=== PATIENT | female | born 1990 | race Caucasian/White ===

== ENCOUNTER 2023-02-02 08:15 | Outpatient (CLI) | payer BC ==
[2023-02-02 08:42] LABS: BASOPHILS % (AUTO) 0.3 %; EOSINOPHILS # (AUTO) 0.1 10^3/uL (0.0-0.7); EOSINOPHILS % (AUTO) 1.2 %; HGB - HEMOGLOBIN 12.2 g/dL (12.0-16.0); LYMPHOCYTES # (AUTO) 1.6 10^3/uL (1.5-3.5); MEAN CORPUSCULAR HEMOGLOBIN 32.4 pg (27.0-31.0); MEAN CORPUSCULAR HGB CONC 34.9 g/dL (32.0-36.0); MEAN CORPUSCULAR VOLUME 93.1 fL (81.0-99.0); MEAN PLATELET VOLUME 11.2 fL (7.9-10.8); MONOCYTES # (AUTO) 0.6 10^3/uL (0.0-1.0); MONOCYTES % (AUTO) 9.5 %; NEUTROPHILS # (AUTO) 4.3 10^3/uL (1.5-6.6); NEUTROPHILS % (AUTO) 64.4 %; PLT - PLATELET COUNT 186 10^3/uL (130-450); RED BLOOD COUNT 3.76 10^6/uL (4.20-5.40); RED CELL DISTRIBUTION WIDTH 11.9 % (12.0-15.0); WHITE BLOOD COUNT 6.6 x10^3/uL (4.8-10.8)
[2023-02-02 09:09] LABS: THYROID STIMULATING HORMONE 1.57 uIU/mL (0.34-5.60)
[2023-02-03 03:10] LABS: HBsAG SCREEN Negative (Negative)
[2023-02-03 05:13] LABS: RPR Non Reactive (Non Reactive)
[2023-02-03 06:09] LABS: HCV AB Non Reactive (Non Reactive); HIV SCREEN 4TH GENERATION Non Reactive (Non Reactive)
[2023-02-03 09:08] LABS: VARICELLA-ZOSTER AB IGG 965 index (Immune >165)
== END 2023-02-02 08:16 | disposition home or self-care (01) ==
LOC: LAB 08:15
PROVIDERS: ATTEND Nurse Practitioner Obstetrics & Gynecology
DX: Z36.89 Encounter for other specified antenatal screening (principal)
CPT/HCPCS: 36415; 84439; 84443; 85025; 86592; 86762; 86787; 86803; 86850; 86900; 86901; 87340; 87389

== ENCOUNTER 2023-04-01 07:21 | Outpatient (CLI) | payer BC ==
--- NOTE | 2023-04-01 11:54 | Ultrasound Report ---
PROCEDURE: OB Anatomy Scan INDICATIONS: SUPERVISION OF OUTSIDE/PRIOR DATING DATA: Last menstrual period (LMP): Unknown. LMP-based estimated date of delivery (EMA): Unknown. First dating scan (date and location): 04/01/2023. Estimated date of delivery (EMA) from first dating scan: 08/19/2023. TECHNIQUE: Real-time scanning was performed of the fetus, with image documentation and biometric measurements. Endovaginal scanning: Not performed. COMPARISON: None. FINDINGS: General: A single living intrauterine gestation is present. Presentation: Variable, vertex Placenta: Placental position is posterior, without previa. Amniotic fluid index: 13.7 cm, within normal limits for gestational age. heart rate: 176 beats per minute. Maternal cervical canal: 6.6 cm long; normal length is 2.5 cm or more. biometrics: Biparietal diameter: 4.9 cm, 20 weeks 6 days, 81% Head circumference: 17.7 cm, 20 weeks 1 day, 50% Abdominal circumference: 14.7 cm, 20 weeks 0 day, 43% Femur length: 3.0 cm, 19 weeks 1 day, 16.5% Estimated gestational age from initial scan: 20 weeks 0 days Composite gestational age from present scan: 19 weeks 5 days Estimated weight and percentile: 308 g, 29% Measurement variability in biometric dating: +/- 10 days from 12-20 weeks gestation, +/- 2 weeks from 20-30 weeks gestation, +/- 3 weeks at 30 weeks gestation or later. Anatomic survey: Neuro: Ventricles are normal at less than 10 mm. Cisterna magna is normal at 3-11 mm. Cerebellum i s normal in size and morphology. Nuchal skin fold: Normal at less than 6 mm between 14 and 20 weeks gestational age. Face: Nose and lips, facial profile are normal. Spine: No evidence for spina bifida. Heart: 4-chambered heart is present, with normal ventricular outflow tracts. Diaphragm: Diaphragm is intact. Stomach: Left-sided stomach is present. Kidneys: No hydronephrosis. Normal is less than 5 mm in 2nd trimester, less than 7 mm in 3rd trimester. Cord: 2 vessel cord has orthotopic insertion. Bladder: Normal in size. Extremities: All 4 extremities are visualized. IMPRESSION: 1.Single live intrauterine consistent with 19 weeks and 5 days. 2.There is a two-vessel cord. Otherwise, normal anatomic survey. Reviewed by: Rory Machuca MD on 04/01/2023 11:53 AM PST Approved by: Rory Machuca MD on 04/01/2023 11:53 AM PST Station ID: [id number]
== END 2023-04-01 07:22 | disposition home or self-care (01) ==
LOC: DI 07:21
PROVIDERS: ATTEND Nurse Practitioner Obstetrics & Gynecology
DX: Z34.02 Encounter for supervision of normal first pregnancy, second trimester (principal); Z36.89 Encounter for other specified antenatal screening

== ENCOUNTER 2023-05-23 11:00 | Outpatient (CLI) | payer BC, OTHER ==
--- NOTE | 2023-05-23 13:56 | Ultrasound Report ---
PROCEDURE: OB Follow up INDICATIONS: CONGENITAL ABSENCE AND HYPOPLASIA OF UMBILICAL ART OUTSIDE/PRIOR DATING DATA: Last menstrual period (LMP): Not provided First dating scan 04/01/2023. EMA is 08/19/2023. TECHNIQUE: Real-time scanning was performed of the fetus, with image documentation and biometric measurements. COMPARISON: 04/01/2023 FINDINGS: General: A single living intrauterine gestation is present. Presentation: Vertex Placenta: Placental position is posterior, without previa. Amniotic fluid index: 14.1 cm, within normal limits for gestational age. heart rate: 119 beats per minute. Maternal cervical canal: 5 cm long; normal length is 2.5 cm or more. biometrics: Biparietal diameter: 7.4 cm, 29 weeks and 6 days, 96 percentile Head circumference: 26.6 cm, 29 weeks, 72nd percentile Abdominal circumference: 23.6 cm, 27 weeks and 6 days, 58th percentile Femur length: 5.1 cm, 27 weeks and 3 days, 33rd percentile Estimated gestational age from initial scan: 27 weeks and 3 days Composite gestational age from present scan: 28 weeks and 4 days Estimated weight and percentile: 1152 g, 59th percentile Measurement variability in biometric dating: +/- 10 days from 12-20 weeks gestation, +/- 2 weeks from 20-30 weeks gestation, +/- 3 weeks at 30 weeks gestation or more. Two-vessel cord again seen. IMPRESSION: Normal interval growth. EFW is at the 59th percentile. Normal MANJEET. Vertex presentation. Two-vessel cord again seen. Reviewed by: Rey Alvarado MD on 05/23/2023 1:55 PM PDT Approved by: Rey Alvarado MD on 05/23/2023 1:55 PM PDT Station ID: [id number]
== END 2023-05-23 11:01 | disposition home or self-care (01) ==
LOC: DI 11:00
PROVIDERS: ATTEND Nurse Practitioner Obstetrics & Gynecology
DX: Q27.0 Congenital absence and hypoplasia of umbilical artery (principal)

== ENCOUNTER 2023-05-23 11:46 | Outpatient (CLI) | payer BC, OTHER ==
[2023-05-23 13:06] LABS: HCT - HEMATOCRIT 30.5 % (37.0-47.0); HGB - HEMOGLOBIN 9.9 g/dL (12.0-16.0); MEAN CORPUSCULAR HEMOGLOBIN 29.6 pg (27.0-31.0); MEAN CORPUSCULAR HGB CONC 32.5 g/dL (32.0-36.0); MEAN CORPUSCULAR VOLUME 91.3 fL (81.0-99.0); MEAN PLATELET VOLUME 10.8 fL (7.9-10.8); RED BLOOD COUNT 3.34 10^6/uL (4.20-5.40); RED CELL DISTRIBUTION WIDTH 15.5 % (12.0-15.0); WHITE BLOOD COUNT 13.2 x10^3/uL (4.8-10.8)
== END 2023-05-23 11:47 | disposition home or self-care (01) ==
LOC: LAB 11:46
PROVIDERS: ATTEND Nurse Practitioner Obstetrics & Gynecology
DX: Z36.9 Encounter for antenatal screening, unspecified (principal)
CPT/HCPCS: 36415; 82950; 85027

== ENCOUNTER 2023-07-19 09:58 | Outpatient (CLI) | payer BC, OTHER ==
--- NOTE | 2023-07-19 14:45 | Ultrasound Report ---
PROCEDURE: OB Follow up INDICATIONS: 2 VESSEL UMBILICAL CORD OUTSIDE/PRIOR DATING DATA: Last menstrual period (LMP): Unknown. First dating scan (date and location): 04/01/2023. Estimated date of delivery (EMA) from first dating scan: 08/19/2023. TECHNIQUE: Real-time scanning was performed of the fetus, with image documentation and biometric measurements. Endovaginal scanning: Not performed. COMPARISON: OB ultrasound, 05/23/2023 and 04/01/2023. FINDINGS: General: A single living intrauterine gestation is present. Presentation: Vertex Placenta: Placental position is posterior, without previa. Amniotic fluid index: 11.4 cm, largest pocket 4.1 cm. heart rate: 130 beats per minute. Maternal cervical canal: Closed measuring 3.8 cm long; normal length is 2.5 cm or more. biometrics: Biparietal diameter: 9.4 cm; 38 weeks 2 days; 98.4%. Head circumference: 33.4 cm; 38 weeks 1 day; 81.0%. Abdominal circumference: 32.3 cm; 36 weeks 1 day; 75.8%. Femur length: 6.9 cm; 35 weeks 3 days; 38.5% Estimated gestational age from initial scan: 35 weeks 4 days. Composite gestational age from present scan: 37 weeks 0 day Estimated weight and percentile: 2935 g; 73.3% for gestational age. Measurement variability in biometric dating: +/- 10 days from 12-20 weeks gestation, +/- 2 weeks from 20-30 weeks gestation, +/- 3 weeks at 30 weeks gestation or more. Other: Not applicable. IMPRESSION: 1. A single living IUP with appropriate interval growth. 2. The estimated weight is at the 73th percentile for gestational age. BPD is at the 98th perce ntile. 3. MANJEET 11.4 cm. 4. A 2-vessel cord is again noted. Reviewed by: Mary Diego MD on 07/19/2023 2:43 PM PDT Approved by: Mary Diego MD on 07/19/2023 2:43 PM PDT Station ID: [id number]
== END 2023-07-19 09:59 | disposition home or self-care (01) ==
LOC: DI 09:58
PROVIDERS: ATTEND Nurse Practitioner Obstetrics & Gynecology
DX: O35.8XX0 Maternal care for other (suspected) fetal abnormality and damage, not applicable or unspecified (principal); Z3A.37 37 weeks gestation of pregnancy

== ENCOUNTER 2023-08-12 07:56 | Inpatient (IN) | payer BC, OTHER ==
[2023-08-12] MEDS ORDERED: OXYTOCIN 10 UNIT/ML VIAL IM PRN (08:19)
[2023-08-12] MEDS ORDERED: METHYLERGONOVINE 0.2 MG/ML VIAL IM PRN (08:19)
[2023-08-12] MEDS ORDERED: SODIUM CHLORIDE FLUSH 0.9% 10 ML SYRINGE IVP PRN (08:19)
[2023-08-12] MEDS ORDERED: CARBOPROST TROMETHAMINE 250 MCG/ML VIAL IM PRN (08:19)
[2023-08-12] MEDS ORDERED: TRANEXAMIC ACID IN NACL 1,000 MG/100 ML BAG IV PRN (08:19)
[2023-08-12] MEDS ORDERED: lidocaine 1% 20 ML MDV ID PRN (08:19)
[2023-08-12] MEDS ORDERED: miSOPROStoL 200 MCG TABLET BC PRN (08:19)
[2023-08-12 08:39] LABS: BASOPHILS % (AUTO) 0.2 %; EOSINOPHILS # (AUTO) 0.1 10^3/uL (0.0-0.7); EOSINOPHILS % (AUTO) 0.5 %; HCT - HEMATOCRIT 35.6 % (37.0-47.0); LYMPHOCYTES # (AUTO) 1.4 10^3/uL (1.5-3.5); LYMPHOCYTES % (AUTO) 13.5 %; MEAN CORPUSCULAR HEMOGLOBIN 31.3 pg (27.0-31.0); MEAN CORPUSCULAR HGB CONC 33.7 g/dL (32.0-36.0); MEAN PLATELET VOLUME 11.6 fL (7.9-10.8); MONOCYTES % (AUTO) 10.2 %; NEUTROPHILS # (AUTO) 7.2 10^3/uL (1.5-6.6); NEUTROPHILS % (AUTO) 71.9 %; PLT - PLATELET COUNT 159 10^3/uL (130-450); RED BLOOD COUNT 3.83 10^6/uL (4.20-5.40); RED CELL DISTRIBUTION WIDTH 14.1 % (12.0-15.0)
[2023-08-12] MEDS: miSOPROStoL 100 MCG TABLET BC SCH (08:50)
--- NOTE | 2023-08-12 11:41 | HISTORY & PHYSICAL EXAMINATION ---
Admit History - Visit Reason Visit Reason: Other - : 1 Parity: 0 Premature: 0 Ectopic: 0 : 0 Care: positive: [facility] Risk/History: positive: None Complications This : positive: Other Smoking Status: Never smoker - Mother's Labs Mother's Blood Type: positive: A Mother's RH: positive: Positive GBS: positive: Group B Step Negative Rubella Status: positive: Immune - HPI Diagnosis/Indication for NST: Other Current [facility] 08/19/23 Gestation 39 Weeks and 0 Days 1 Vital Signs Temperature 36.5 C 08/12/23 08:02 Heart Rate 120 H 08/12/23 08:02 Respiratory Rate 16 08/12/23 08:02 Blood Pressure 104/69 08/12/23 08:02 Temperature 36.5 C 08/12/23 08:02 Heart Rate 120 H 08/12/23 08:02 Respiratory Rate 16 08/12/23 08:02 Blood Pressure 104/69 08/12/23 08:02 O2 Saturation If not protocol: Oxygen Flow, liters/minute - NST Procedure NST reactive. FHR baseline 140s, moderate variability, + accels, no decels No contractions appreciated via tocometry Meds/Allgy - Allergies Allergies/Adverse Reactions: Allergies Allergy/AdvReac Type Severity Reaction Status Date / Time No Known Drug Allergies Allergy Verified 08/12/23 09:48 Review of Systems - Constitutional Constitutional: denies: Fatigue, Fever, Chills, Malaise - Eyes Eyes: denies: Blurred vision, Spots in vision, Dipolpia - Cardiovascular Cariovascular: denies: Irregular heart rate, Palpitations, Chest pain, Edema - Respiratory Respiratory: denies: Cough, Wheezing, SOB at rest - Gastrointestinal Gastrointestinal: denies: Abdominal pain, Constipation, Diarrhea, Nausea, Vomiting - Genitourinary Genitourinary: denies: Dysuria - Integumentary Integumentary: denies: Rash, Pruritis - Neurological Neurological: denies: Headache - Psychiatric Psychiatric: denies: Depression, Anxiety - Hematologic/Lymphatic Hematologic/Lymphatic: denies: Anemia - All Other Systems All Other Systems: reports: Reviewed and negative Physical - Abdominal Exam Vital Signs: Temp Pulse Resp BP Pulse Ox O2 Flow Rate 36.5 C 120 H 16 104/69 08/12/23 08:02 08/12/23 08:02 08/12/23 08:02 08/12/23 08:02 Contraction Intensity: positive: Mild Uterine Resting Tone: positive: Soft - Monitoring Heart Rate Baseline: 140 Strip Review: positive: Category I - Presentation Presentation: positive: Vertex - Vaginal Exam Membranes: positive: Membranes intact Dilation (in cm): 1 Effacement (%): 50 Station: positive: -3 Cervical Position: positive: Midposition - Speculum Exam Speculum Exam Performed: positive: No Plan for Labor - Plan For Labor I expect patient to be DC'd or transferred within 96 hours.: Yes Plan for Labor: Sheeba is a 33yo @ 39.0wks gestation by LMP c/w 8.5wk U/S who presents to [facility] for medical induction of labor indicated for single umbilical artery. Upon arrival her NST is reactive with FHR baseline 140s. Cervix is 1/50/-3 and vertex with intact membranes. She denies contractions, vaginal bleeding or leakage of fluid and reports +FM. She is supported by her Gurpreet today. She has been a patient of [facility] for the duration of her which has been complicated by single umbilical artery. She has had weekly testing since 36wks gestation per [facility] recommendations and her growth & MANJEET at both 28wks and 35wks were within normal limits with estimated weight to be 59%tile and 73%tile respectively. In addition to 2VC she is advanced maternal age and has had mild anemia throughout her for which she has taken and responded well to oral iron supplementation. She will be admitted to [facility] for medication induction of labor. Dating criteria: LMP: 11/12/2022 EMA by LMP: 08/19/2023 Initial U/S @ 8.5wks c/w LMP dating. 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 Denies history of gonorrhea, chlamydia, genital herpes, oral herpes or any other STI. Sexual partner does NOT have HSV (oral or genital). Medical Hx: anxiety Surgical Hx: Tonsillectomy & adenoidectomy (1991) Social Hx: Monogamous with male partner. 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 Stopped drinking alcohol due to . Denies current use of tobacco, marijuana or other recreational drugs. Reports that she is safe in current relationship. Family Hx: Mother-hypothyroid. Denies family history of congenital anomalies, Cystic Fibrosis or chromosomal abnormalities. Allergies: NKDA Medications: FeSO4 PO bid; PNV course: A positive, antibody negative Rubella immune, varicella immune Hep B neg, Hep C neg HIV non-reactive, RPR - nonreactive GC/CT neg Genetic screening - negative FAS WNL with the exception of 2VC. Posterior placenta, no previa. Size c/w dating (EFW 29%tile). MANJEET WNL. Glucola 122 28wk Growth and MANJEET WNL: Size c/w dating (EFW 59%tile). 2VC. MANJEET 14.4cm 35wks Growth and WFI WNL: EFW 73.3%tile (2935g) 11.4cm GBS negative Physical exam: Normocephalic, atraumatic Heart RRR w/o M/G/R Lung CTAB Abdomen gravid, soft, nontender EFW 3800g FHR baseline 140s, moderate variability, + accels, no decels No contractions palpable via tocometry SVE 1/50/-3, vertex. Intact membranes Bilateral LE's trace edema. Assessment: 33yo @ 39.0wks gestation Single umbilical artery Advanced maternal age FHR Category I GBS negative Plan: Admit to [facility] for medical induction of labor. Initiate 50mcg BC misoprostol for pre-induction cervical ripening. Place cervical ripening balloon with next SVE. Continuos monitoring. Epidural per maternal request. Anticipate .
[2023-08-12] MEDS ORDERED: LIDOCAINE 2%-EPI 1:100000 20 ML MDV ONE ×2 (11:47→21:00)
[2023-08-12] MEDS ORDERED: ROPIVACAINE 0.2% 200 MG/100 ML BAG EP ONE (11:47)
[2023-08-12] MEDS: LACTATED RINGERS 1,000 ML IV SCH (11:59)
[2023-08-12] MEDS ORDERED: diphenhydrAMINE INJ 50 MG/ML VIAL IVP PRN (13:10)
[2023-08-12] MEDS ORDERED: METOCLOPRAMIDE 10 MG/2 ML VIAL IVP PRN (13:10)
[2023-08-12] MEDS ORDERED: ePHEDrine 50 MG/ML VIAL IVP PRN (13:10)
[2023-08-12] MEDS ORDERED: NALBUPHINE 10 MG/ML AMP IVP PRN (13:10)
[2023-08-12] MEDS ORDERED: NALOXONE 0.4 MG/ML VIAL IVP PRN (13:10)
--- NOTE | 2023-08-12 13:13 | ANESTHESIA ---
Pre-Anesthesia VS, & Labs - Diagnosis 39w desires labor epidural - Procedure placement of labor epidural Vital Signs: Temp Pulse Resp BP Pulse Ox O2 Flow Rate 36.5 C 120 H 16 104/69 08/12/23 08:02 08/12/23 08:02 08/12/23 08:02 08/12/23 08:02 Height: 5 ft 3 in Weight (kg): 97.069 kg Body Mass Index: 37.9 BMI Classification: Obese - NPO Last Fluid Intake: sips currently - Is Patient ?: Yes - Lab Results Current Lab Results: Laboratory Tests 08/12/23 08:15: WBC 10.0, RBC 3.83 L, Hgb 12.0, Hct 35.6 L, MCV 93.0, MCH 31.3 H , MCHC 33.7, RDW 14.1, Plt Count 159, MPV 11.6 H, Neut # (Auto) 7.2 H, Lymph # (Auto) 1.4 L, [place]ides # (Auto) 1.0, Eos # (Auto) 0.1, Baso # (Auto) 0.0, Absolute Nucleated RBC 0.00, Nucleated RBC % 0.0 08/12/23 08:15: Blood Type A POSITIVE, Antibody Screen NEGATIVE Lab results reviewed: Yes Fish Bones: 08/12/23 08:15 Home Medications and Allergies Active Medications Carboprost Tromethamine (Carboprost Tromethamine 250 Mcg/Ml Vial) 250 mcg IM Q15M PRN PRN Reason: Step 4: Hemorrhage protocol Oxytocin/Sodium Chloride (Pitocin/Sodium Chloride) 500 mls @ 999 mls/hr IV PRN PRN; Protocol PRN Reason: POST- HEMORR PREVENTION Stop: 08/17/23 08:20 Tranexamic Acid (Tranexamic 1,000 Mg/100ml-Nacl) 1,000 mg in 100 mls @ 600 mls/hr IV .ONCE PRN PRN Reason: EBL >1200mL and within 3hr Stop: 08/17/23 08:20 Lactated Ringer's (Lr) 1,000 mls @ 100 mls/hr IV .Q10H MILADIS Last Infusion: 08/12/23 12:02 Dose: 999 mls/hr Lidocaine HCl (Lidocaine 1% 20 Ml Mdv) 20 ml ID .ONCE PRN PRN Reason: PERINEAL REPAIR Stop: 08/17/23 08:20 Methylergonovine Maleate (Methylergonovine 0.2 Mg/Ml Vial) 0.2 mg IM .ONCE PRN PRN Reason: Step 2: Hemorrhage protocol Stop: 08/17/23 08:20 Misoprostol (Misoprostol 200 Mcg Tablet) 800 mcg BC .ONCE PRN PRN Reason: Step 3: Hemorrhage protocol Stop: 08/17/23 08:20 Misoprostol (Misoprostol 100 Mcg Tablet) 50 mcg BC Q4HR MILADIS Last Admin: 08/12/23 08:50 Dose: 50 mcg Oxytocin (Oxytocin 10 Unit/Ml Vial) 10 unit IM .ONCE PRN PRN Reason: Step one: If no IV access Stop: 08/17/23 08:20 Sodium Chloride (Sodium Chloride Flush 0.9% 10 Ml Syringe) 10 ml IVP PRN PRN PRN Reason: NEEDED PER PROVIDER ORDERS Allergies/Adverse Reactions: Allergies Allergy/AdvReac Type Severity Reaction Status Date / Time No Known Drug Allergies Allergy Verified 08/12/23 09:48 Anes History & Medical History - Anesthetic History Anesthesia Complications: reports: No previous complications Family history of Anesthesia Complications: Denies - Medical History Cardiovascular: reports: None Pulmonary: reports: None Gastrointestinal: reports: None Urinary: reports: None Neuro: reports: None Endocrine/Autoimmune: reports: None Blood Disorders: reports: None Smoking Status: Never smoker Psychosocial: reports: No issues indicated - Obstetrical History : 1 Parity: 0 Events: reports: None Complications: reports: Other Exam General: Alert, Oriented x3 Dental: WNL Mouth Openin Fingerbreadth Neck Mobility: Normal Mallampati classification: II Thyromental Distance: 4-6 cm Plan Anesthesia Type: Epidural Consent for Procedure(s) Verified and Reviewed: Yes Code Status: Attempt Resuscitation ASA classification: 1-Healthy patient Is this case an emergency?: No
--- NOTE | 2023-08-12 17:05 | PROVIDER PROGRESS NOTE ---
Labor Progress Note - Uterine Monitoring Uterine Monitoring Mode: positive: External toco Contraction Frequency (min/apart): 2-4 Contraction Intensity: positive: Moderate Uterine Resting Tone: positive: Soft - Monitoring Monitor Mode: positive: External ultrasound Heart Rate Baseline: 140 Heart Rate Variability: positive: Moderate (6-25 bmp) Accelerations: positive: Present, 15x15 Decelerations: positive: None Strip Review: positive: Category I - Labor Progress Note Labor Progress Note/Additional Text: Sheeba is a 33yo @ 39.0wks gestation by LMP c/w 8.5wk U/S who presents to [facility] for medical induction of labor indicated for single umbilical artery. Upon arrival her NST is reactive with FHR baseline 140s. Cervix is 1/50/-3 and vertex with intact membranes. She received one dose of misoprostol and a cervical ripening ballon was placed a few hours later and remains in place at the time of this note. She became increasingly more uncomfortable and received epidural anesthesia. Is now very comfortable. Contractions 2-4 minutes. Continued category I tracing. ................................JERALD Castillo, Student Nurse Fifth Grade Teacher.
[2023-08-12] MEDS: OXYTOCIN/SODIUM CHLORIDE 500 ML IV SCH (17:58)
--- NOTE | 2023-08-12 18:07 | PROVIDER PROGRESS NOTE ---
Labor Progress Note - Uterine Monitoring Uterine Monitoring Mode: positive: External toco Contraction Intensity: positive: Moderate Uterine Resting Tone: positive: Soft - Monitoring Monitor Mode: positive: External ultrasound Heart Rate Variability: positive: Moderate (6-25 bmp) Accelerations: positive: Present, 15x15 Decelerations: positive: None - Labor Progress Note Labor Progress Note/Additional Text: At bedside with KATRIN Coleman. Vaginal exam: Cervical ripening balloon intact despite tension. Continued category I tracing, contractions 2.5-4 minutes, moderate intensity. Discussed plan of care with Sheeba who desires labor augmentation with oxytocin. Discussed expectations for titration of oxytocin and labor curve. Utilized shared decision making and order placed with KATRIN Coleman for oxytocin titration per induction protocol. JERALD Castillo, Student Nurse Radiology Special Procedure Tech
--- NOTE | 2023-08-12 18:58 | PROVIDER PROGRESS NOTE ---
Labor Progress Note - Uterine Monitoring Uterine Monitoring Mode: positive: External toco : 2-3.5 Contraction Intensity: positive: Moderate Uterine Resting Tone: positive: Soft - Monitoring Monitor Mode: positive: External ultrasound Heart Rate Baseline: 140 Heart Rate Variability: positive: Moderate (6-25 bmp) Accelerations: positive: Present, 15x15 Decelerations: positive: None Strip Review: positive: Category I - Vaginal Exam Dilation (in cm): 5 Effacement (%): 50 Station: -3 - Labor Progress Note Labor Progress Note/Additional Text: Cervical ripening balloon came out with gentle manipulation by RN. Cervical exam by RN /-3, intact. Pitocin @ 4mu/min. JERALD Castillo Student Nurse Lead Solutions Architect.
[2023-08-12] MEDS: ROPIVACAINE 0.2% 200 MG/100 ML BAG EP PRN (19:11)
--- NOTE | 2023-08-12 20:56 | PROVIDER PROGRESS NOTE ---
Labor Progress Note - Uterine Monitoring Uterine Monitoring Mode: positive: IUPC Contraction Frequency (min/apart): 2-3 Contraction Intensity: positive: Mild to moderate Uterine Resting Tone: positive: Soft - Monitoring Monitor Mode: positive: External ultrasound Heart Rate Variability: positive: Moderate (6-25 bmp) Accelerations: positive: Present, 15x15 Decelerations: positive: Variable Strip Review: positive: Category II - Vaginal Exam Dilation (in cm): 6 Effacement (%): 50 Station: -2 Cervical Position: Midposition - Labor Progress Note Labor Progress Note/Additional Text: Situation: Patient started to feel discomfort with epidural, tolerating position changes, slightly anxious, overall coping well, understands situation after our discussions, feels well informed. Objective: 1. SVE /-2 2. Recurrent variable decelerations since AROM @ 1920. RN interventions included multiple position changes and IV fluid bolus, oxytocin stopped little 3. improvement. IUPC placed after extended discussion and amnioinfusion initiated. Assessment: 33 year old @ 39+0 gestation 1. single umbilical artery 2. advanced maternal age 3. medical induction of labor. 4. Category 2 tracing. Plan: 1. continuos monitoring 2. reevaluation of status after amniocentesis 3. leave pitocin off until no variable decelerations x30 minutes. 4. On-call physician notified of patient status. .Marcella Sadler, Student Nurse Shipwright Apprentice
[2023-08-12] MEDS ORDERED: SODIUM CHLORIDE 0.9% 10 ML VIAL IVP ONE (21:01)
[2023-08-12] MEDS: ONDANSETRON 4 MG/2 ML VIAL IVP PRN (22:28)
[2023-08-12] MEDS ORDERED: SODIUM CHLORIDE 0.9% 1,000 ML IY ONE (23:36)
[2023-08-12] MEDS: SODIUM CHLORIDE 0.9% 1,000 ML IY ONE (23:53)
[2023-08-13] MEDS ORDERED: LACTATED RINGERS 1,000 ML IY ONE (02:25)
[2023-08-13] MEDS: SODIUM CHLORIDE 0.9% 1,000 ML IY ONE (02:45)
--- NOTE | 2023-08-13 06:23 | PROVIDER PROGRESS NOTE ---
Labor Progress Note - Uterine Monitoring Uterine Monitoring Mode: positive: IUPC Contraction Intensity: positive: Strong Uterine Resting Tone: positive: Soft - Monitoring Monitor Mode: positive: External ultrasound Heart Rate Baseline: 130 Heart Rate Variability: positive: Moderate (6-25 bmp) Accelerations: positive: Present, 15x15 Decelerations: positive: None Strip Review: positive: Category I - Vaginal Exam Dilation (in cm): 9 Effacement (%): 90 Station: 0 - Labor Progress Note Labor Progress Note/Additional Text: S:High throne. Had a short nap and pain now well managed with epidural after several boluses. Feeling significant pressure in her lower back and buttock during contractions. Tolerating position changes, slightly anxious, coping well, understands situation after our discussions, feels well informed. O: FHR baseline 130, moderate variability, + accels, No significant or recurrent decels. Overall reassuring with moderate variability maintained throughout. IUPC. MVU appear 160-180. Oxytocin now titrated to 10mu/min. SVE 9/90/0, Vertex. Grossly ruptured. Cranberry-colored urine. Urinary portillo balloon noted to be displaced below head and gently moved behind the head. Amnioinfusion now infusing at 80cc/hour. A: 33yo @ 39.0wks gestation by LMP c/w 8.5wk U/S who presents to [facility] for medical induction of labor indicated for single umbilical artery FHR Category I GBS neg P: Continue to titrate pitocin per protocol increasing 2mu/min q 30 minutes . Continuous monitoring. Maintain epidural for pain management encourage rotations in bed on peanut ball Anticipate . JERALD Castillo, Student Nurse Dip Unit Operator.
[2023-08-13] MEDS: diphenhydrAMINE INJ 50 MG/ML VIAL IVP SCH (06:48)
[2023-08-13] MEDS ORDERED: LIDOCAINE-MPF 2% 5 ML VIAL ONE (07:04)
[2023-08-13] MEDS: OXYTOCIN/SODIUM CHLORIDE 500 ML IV PRN (10:34)
--- NOTE | 2023-08-13 11:38 | DELIVERY NOTE ---
Delivery Note - Labor Labor: positive: Spontaneous - Delivery Method Delivery Method: positive: Spontaneous vaginal delivery - Cervical Ripening Method Cervical Ripening Method: positive: Balloon device, Misoprostil, Oxytocin - Presentation Presentation: positive: NIXON - left occiput anterior - Nuchal Cord Nuchal Cord: positive: None - Anesthetic Anesthetic Type: - Amniotic Fluid Description Amniotic Fluid Description: positive: Clear - Episiotomy Type Episiotomy Type: positive: None - Laceration Laceration: positive: 1st degree, Sulcus - Suture Suture Type: positive: Vicryl Suture Size: positive: 2-0 - Delivery Outcome Delivery Outcome: positive: Livebirth - [place] : positive: Placed in direct skin contact with mother, Suctioned, Bulb syringe, Stimulated, Warmed, Butler used, Warmer used, Other sex: positive: Male - Cord Cord: positive: 2 vessels - Placenta Placenta: positive: Intact - Estimated Blood Loss Estimated Blood Loss (in cc): 400 - Post Delivery Events Post Delivery Events: positive: Shoulder dystocia - Delivery Comments (Free Text/Narrative) Delivery Comments (Free Text/Narrative): This 33-year-old, G 1 P 0000 . @ 39 + 0 gestation by LMO c/w 8.5 week ultrasound. Presented to L&D for medical induction of labor indicated for single umbilical artery. Upon arrival, her NST was reactive with FHT baseline in 140s. Cervix was 1/50/-3 and vertex and intact membranes. Vertex presentation by sathya's and exam. Supported by her Gurpreet today. Farnsworth score 5. FHR pattern demonstrated category 140 baseline in a category I. She received a single dose of misoprostol, cervical ripening balloon in for approximately 9 hours until gentle traction by RN and balloon expelled. Epidural placed upon maternal request. AROM occurred @ 1920. She then progressed to complete/complete @ 0920 on 08/13/2023 and ready to deliver. 0921 second stage began at: 0921. : Normal spontaneous vaginal delivery of a viable male on 08/13/2023 @ 1031. No nuchal cord, following a 50 second shoulder dystocia that was easily resolved with Jojo and superpubic pressure. The was placed on maternal abdomen, stimulated, dried and placed skin to skin. Apgars 4, 7& 9 at 1, 5, & 10 minutes. Pitocin administered via IV for hemostasis. The umbilical cord was allowed to stop pulsating at which time it was doubly clamped by delivering provider and cut by FOB. known 2VC. Cord blood was obtained. Fundal massage and gently cord traction applied for active management of the third stage, placenta delivered spontaneously and intact @ 1039 time. EBL 400 Placenta was WAS NOT sent to pathology. Thirty units of Pitocin were added to the IV fluid and allowed to run freely. Uterine massage was performed until uterus was deemed firm. Inspection of the perineum noted a bilateral first-degree sulcus laceration. This was repaired with a running suture of 2-0 Vicryl. Upon re-inspection the patient was hemostatic. Uterus again massaged and found to be firm. Needle and sponge counts were correct. Fourth stage: Uterine fundus firm and there is no excessive bleeding. The perineum, vagina and cervix were inspected and found to well approximated and homeostatic. Vaginal and rectal examination following the repair was done. skin to skin initiated. Family bonding well. Both mother and baby are in stable condition. JERALD Castillo Student Nurse Consulting Analyst
[2023-08-13] MEDS: IBUPROFEN 800 MG TABLET PO SCH (11:39)
[2023-08-13] MEDS: ACETAMINOPHEN 500 MG TABLET PO SCH (11:39)
[2023-08-13] MEDS: ACETAMINOPHEN 1,000 MG/100 ML 1,000 MG/100 ML BAG IV ONE (12:27)
[2023-08-14] MEDS: DOCUSATE SODIUM 100 MG CAPSULE PO SCH (00:19)
[2023-08-14 09:01] VITALS: BP 119/61; O2SAT 97
--- NOTE | 2023-08-14 13:05 | Discharge Plan ---
Discharge Plan Problem Reviewed?: Yes Disposition: Home, Self Care Condition: Good Diet: Regular Activity Restrictions: No Restrictions Shower Restrictions: No Driving Restrictions: No Weight Bearing: Full Weight Instruction Topics: Vaginal After No Smoking: If you smoke, Please STOP! Call for help. Follow-up with: Lamar Coleman CNM, ARNP [Provider Admit Priv/Credential] - 2 Weeks
--- NOTE | 2023-08-14 13:14 | DISCHARGE SUMMARY ---
Discharge Summary Condition at Discharge: Good Discharge Disposition: 01 Home, Self Care - HOSPITAL COURSE Hospital Course: Date of Admission: 08/12/2023 Date of Discharge: 08/14/2023 Diagnosis on Admission: 1. 33yo @ 39.0wks gestation 2. Single umbilical artery 3. Advanced maternal age 4. GBS negative 5. FHR Category I Diagnosis on Discharge: 1. 33yo PPD#1 s/p TSVB viable male 2. Normal recovery Brief History: She is a patient of [facility] who presented on 08/12/2023 for medical induction of labor secondary to single umbilical artery and advanced maternal age. Upon arrival her cervix was 1/50/-3 and vertex with intact membranes. She received 1 50mcg dose of BC misprostol and a cervical ripening balloon was placed for pre-induction cervical ripening. Pitocin was initiated for induction of labor followed by AROM for a copious amount of clear fluid. She had intermittent periods of Category II tracing that resolved with amnioinfusion and progressed to spontaneously deliver a viable male infant on 08/13/2023 at 1031 following a 71 minute second stage and 50 second shoulder dystocia that was easily resolved. Apgars were 4/7/9 at 1, 5, and 9 minutes respectively. EBL 400mL. 2VC confirmed. She has been doing well in her course. She is ambulating and tolerating a regular diet. She is urinating without difficulty and her lochia is normal. Her pain is well controlled with oral medications. She is bonding well with her baby. She will be discharged home today on day #1 with instructions to continue taking oral iron for 6 weeks and continue taking ibuprofen and tylenol over the counter as needed for pain management. In addition she has been sent a prescription for Cabergoline for cessation of milk production secondary to her desire to exclusively formula feed. She intends to follow up with myself at [facility] in 2 weeks for routine care or sooner if needed. She has been given precautions to call if she has any worsening fevers, chills, abdominal pain, increased vaginal bleeding or foul smelling vaginal lochia. Physical exam: Normocephalic, atraumatic. Heart RRR w/o M/G/R, lungs CTAB, abdomen soft and nontender with fundus firm at U, perineum intact, repair without edema, light lochia rubra. Bilateral LE's trace edema. Mood is good. supportive at the bedside. - ALLERGIES Allergies/Adverse Reactions: Allergies Allergy/AdvReac Type Severity Reaction Status Date / Time No Known Drug Allergies Allergy Verified 08/12/23 09:48 - LABS Result Diagrams: 08/12/23 08:15
--- NOTE | 2023-08-14 14:54 | Labor Flowsheet ---
Labor Flowsheet Datetime Report Generated by CPN: 08/14/2023 14:54 Datetime: 08/14/2023 08:03 VITAL SIGNS NBP Sys/Marisol/Mean (mmHg): 119 : 61 : 75 Pulse: 97 Datetime: 08/13/2023 13:00 Stage of : SpO2 (%): 98 Datetime: 08/13/2023 10:58 Membranes Ruptured Date/Time: 08/12/2023 19:20 Cervical Ripening Agents: Escoto Balloon; Cytotec @ Datetime: 08/13/2023 10:34 Medication Comments: pit bolus per VO A.[place], CNM Datetime: 08/13/2023 10:30 STAGE 2 Stage 2 Comments: head 1030 10 seconds Datetime: 08/13/2023 10:02 UTERINE ACTIVITY Monitor Mode: External Datetime: 08/13/2023 09:46 LaborFlag: Labor Datetime: 08/13/2023 09:25 Patient Position/Activity: Left Tilt Datetime: 08/13/2023 09:22 Patient Care Comments: Escoto removed for 1025mL bloody urine Datetime: 08/13/2023 09:01 Pitocin Checklist: At Least 1 Acceleration of 15 bpm x 15 Seconds in 30 Minutes or Adequate Variabi lity; No More than 1 Late Deceleration Occurred in Past 30 Minutes; No More than 2 Variable Decelerat ions > 60 Seconds in Duration and decreasing >60 bpm in 30 minutes; No More than 5 Uterine Contractio ns in 10 Minutes for any 20 Minute Interval; Uterus Palpates Soft between Contractions; IUPC Resting Tone less than 25 mmHg MEDICATIONS Pitocin (milliunits): Increased to @ 18 COMMUNICATION Communication: RN at Bedside; RN Reviewed Strip Datetime: 08/13/2023 08:30 Baxter Units (mmHg): 150 Datetime: 08/13/2023 08:00 Category: Category I Datetime: 08/13/2023 07:30 Frequency (min): 2-2.5 Quality: Moderate Duration (sec): 60-80 Pattern: Normal: <= 5 Contractions in 10 Minutes Resting Tone (Palpate): Relaxed MONTEVIDEO UNITS (Computed) Contractions in Ten Minutes: 5 IUPC Average Intensity: 40 IUPC Average Resting Tone: 15 ASSESSMENT A Monitor Mode: External US FHR Baseline Rate : 125 Variability: Moderate 6-25 bpm Accelerations: 15X15 Decelerations: Variable Datetime: 08/13/2023 07:24 Temperature (C): 37.0 Datetime: 08/13/2023 07:17 Pain Coping: Sleeping Datetime: 08/13/2023 07:06 Strip Reviewed by: m anastasia Provider Notified (Name): Lamar and Marcella Notification Reason: Labor Status Datetime: 08/13/2023 07:05 PAIN Pain Scale: 10 Pain Assessment Comments: anesthesia here Datetime: 08/13/2023 07:00 Respirations: 20 Datetime: 08/13/2023 06:54 Resting Tone IUP (mmHg): 10 Intensity IUP (mmHg): 45 FHR Baseline Changes: No Baseline Change Datetime: 08/13/2023 06:45 Anesthesia Comments: anesthesia notified for redose due to pain Datetime: 08/13/2023 06:15 Baxter Units (mmHg): 175 Datetime: 08/13/2023 06:05 VAGINAL EXAM Dilatation (cm): 9.0 Effacement (%): 90 Station: 0 Exam by: A [place] Vaginal Bleeding: Normal Show Cervix, Consistency: Soft Cervix, Position: Anterior Datetime: 08/13/2023 05:57 Provider Reviewed Strip: Yes Datetime: 08/13/2023 04:00 Anesthesia Level Check: T10- Umbilicus Datetime: 08/13/2023 03:53 Communication Comments: SVE progress made, attempted pushing with some descent, but not fully dilat ed yet Datetime: 08/13/2023 01:49 Epidural Procedure Other: Single Dose Datetime: 08/13/2023 01:32 Pain Presence: Intermittent Pain Type: Cramping Pain Relief Measures: WIND [employer]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; Comfort Measures Comfort Measures: Anesthesia Notified Datetime: 08/13/2023 00:27 Amniotic Fluid Amount: Small Membrane Comments: see I_o meditech for vaginal fluid output Datetime: 08/12/2023 23:50 Amnioinfusion: Fluid Returned TEACHING Instructional Method: Verbal Datetime: 08/12/2023 22:30 Antiemetics/Antacids: Other Antiemetic/Antacid @ zofran 4mg Datetime: 08/12/2023 21:53 MATERNAL ASSESSMENT Level of Consciousness: Alert Headache: Denies Nausea/Vomiting: Denies RUQ Epigastric Pain: Denies Datetime: 08/12/2023 20:58 Contraction Comments: amnioinfusion at 180ml per hour Datetime: 08/12/2023 20:18 Comments: amnioinfusion started Datetime: 08/12/2023 20:09 Monitor Interventions for UA: IUPC Inserted Datetime: 08/12/2023 19:55 Breath Sounds, Left: Clear and Equal Breath Sounds, Right: Clear and Equal Datetime: 08/12/2023 19:37 PATIENT CARE IV/Blood Work: IV Bolus Started Datetime: 08/12/2023 19:20 Membrane Status: Ruptured Membranes Rupture Method: Artificial Amniotic Fluid Color: Clear Amniotic Fluid Odor: Normal Datetime: 08/12/2023 18:29 Vaginal Exam Comments: cook balloon out Datetime: 08/12/2023 12:26 Epidural Procedure: Loading Dose Datetime: 08/12/2023 12:00 Pain Location: Abdomen; Back Datetime: 08/12/2023 11:56 PROCEDURE TIME OUT Procedure Verify: Correct Patient Identity; Accurate Procedure Consent Form; Agreement on Procedure to be Done; Correct Patient Position; Relevant Images and Results are Properly Labeled and Displayed ; Safety Precautions Based on Patient History or Medication Use ANESTHESIA Anesthesia Plans: Epidural Epidural Positioning: Sitting
== END 2023-08-14 13:00 | disposition home or self-care (01) | DRG 807 ==
LOC: FBP 07:56 → WFO 07:56 → FBP 08:19
PROVIDERS: ADMIT Nurse Practitioner Obstetrics & Gynecology; ATTEND Nurse Practitioner Obstetrics & Gynecology
PROC: 10907ZC Drainage of Amniotic Fluid, Therapeutic from Products of Conception, Via Natural or Artificial Opening (ICD-10-PCS; 2023-08-12)
PROC: 3E033VJ Introduction of Other Hormone into Peripheral Vein, Percutaneous Approach (ICD-10-PCS; 2023-08-12)
PROC: 3E0DXGC Introduction of Other Therapeutic Substance into Mouth and Pharynx, External Approach (ICD-10-PCS; 2023-08-12)
PROC: 0U7C7ZZ Dilation of Cervix, Via Natural or Artificial Opening (ICD-10-PCS; 2023-08-12)
PROC: 0HQ9XZZ Repair Perineum Skin, External Approach (ICD-10-PCS; principal; 2023-08-13)
PROC: 10E0XZZ Delivery of Products of Conception, External Approach (ICD-10-PCS; 2023-08-13)
DX: O70.0 First degree perineal laceration during delivery (principal); Z37.0 Single live birth; O69.89X0 Labor and delivery complicated by other cord complications, not applicable or unspecified; Z3A.39 39 weeks gestation of pregnancy
CPT/HCPCS: 36415; 59409; 85025; 86850; 86900; 86901; 86920; A9270; J0131; J1200; J7120